=== PATIENT | female | born 1960 | race Caucasian/White ===

== ENCOUNTER → 2017-07-07 | Outpatient (CLI) | payer OTHER ==
--- NOTE | 2017-07-07 10:02 | ST Modified Barium Swallow ---
Recommendation - Recommendations Recommendations: No diet or compensatory strategy recommendations, functional swallow seen. Medical Diagnoses - Medical Diagnoses Medical Diagnosis Description & ICD-10 Code(s): dysphagia, R13.10, R13.19 Other Medical Diagnoses/Co-Morbidities: per patient report: HTN, hyperlipidemia , reflux, spinal stenosis, scoliosis, sciatica ST Modified Barium Swallow - General Date: 07/07/17 Referring Physician: Dr. Mickey Hernandez Risks/Precautions: None Date of Onset: 06/07/17 - approximate onset date Reason for Referral: difficulty swallowing - History History obtained from: Patient -: Medical - Patient reports that approximately 1 month ago, began having episodes in which she was having difficulty swallowing her own secretions. She stated it was as if she "forgot how to swallow". Episodes would last 15-20 seconds, then resolve. States this has happened approximately x3 in the last month. Does not report coughing or choking/strangling sensation during these episodes. No noted difficulty with food or drink. Medications: per patient report: omeprazole, furosemide, CoQ10, citalopram, Vitamin D3, aspirin, pravastatin Allergies: none reported - Functional Status Prior Functional Status: INDEPENDENT: feeding - independent Current Functional Limitations: feeding - independent - Subjective Patient/caregiver goal(s): r/o struct. abnormality Cognitive-Linguistic Function: WNL Speech Intelligibility: WNL Current Nutritional Means: PO Current PO diet: Regular Current symptoms: other Pain: Patient reports, 0/5 - Objective Assessment: Upright, Left Lateral - Food Trials Used Food trials used: Thin liquids, Pureed, Regular The patient: Was Able to Self Feed - Oral-Motor Skills Laryngeal Function: Throat Clear, Volitional Swallow, clear voicing - Assessment Oral prep: Normal Labial closure: Adequate Leakage: None Mastication: Adequate Lingual Movement: Normal Oral stage: Normal for this Procedure - Pharyngeal Stage Initiation of Pharyngeal Stage Reflex: Normal Decreased laryngeal elevation: No Reduced Velopharyngeal Closure: no Reduced pressure generation: No reduced tongue-based retraction: No Pre-swallow pooling in valleculae: None Pre-Swallow pooling in pyriforms: None Reduced Thyro-Hyoid approximation: No Reduced epiglottic excursion: No Reduced pharyngeal peristalsis/contraction: No Post-swallow residulas vallecular: None Post-Swallow residuals in pyriforms: None Post-Swallow Residuals: no residuals - Fall Risk Assessment Medications/Conditions that increase fall risks include: Antidepressants, sedatives, anti-arrhythmic, diuretic, benzodiazipenes, neuroleptics. BP regulation problems, cardiac problems, balance or gait deficits, neurological problems. Fall Risk Actions Taken: No action needed - Behavioral Observations During evaluation process patient: was cooperative, able to answer questions Mental Status: Alert & Oriented X3 - Treatment / Educational Needs: Treatment/Education Needs: Treatment consisted of patient education on the role of the Speech Pathologist. Patient's plan of care and golas were communicated as well as scheduling and attendance policies. Recommendations for initial home program were shared. Patient demonstrated understanding and verbalized agreement. - Impression/Summary Laryngeal Penetration: No Tracheal Aspiration: no Patient presents with: Normal swallow at eval Risk of Aspiration: Minimal Risk of nutritional compromise: None - Recommendations Solid diet recommendations: Regular Liquid Diet Modification: Thin Pt/Family education and followup with MD: Yes Dysphagia therapy with ADMINISTRATIVE DIETITIAN: no Information, Precautions and Recommendations: Patient (Written), Patient (Verbal ) - Time Total Time: 25 - Plan of Care Strategies to optimize patient understanding include:: ongoing assessment of educational needs, implementation of educational strategies, and re-education. - - -: Thank you for the opportunity to work with this patient and his/her family. Should you have any questions about this patient's plan or progress, I can be reached at [phone]. Charge G Code? - - -: No
--- NOTE | 2017-07-07 10:44 | RADIOLOGY REPORT (SQ) ---
EXAM DESCRIPTION: MRI HEAD WITHOUT COMPLETED DATE/TIME: 07/07/2017 9:02 am REASON FOR STUDY: HEADACHE (R51) R13.19 OTHER DYSPHAGIA COMPARISON: None. TECHNIQUE: Multiplanar imaging includes non-contrasted T1, T2, FLAIR, and diffusion with ADC map seq uences. Images stored on PACS. LIMITATIONS: None. FINDINGS: ANATOMY: No anomalies. Normal vascular flow voids. Pituitary fossa normal. CSF SPACES: Normal in size and contour. No hemorrhage. CEREBRUM: Sulci and gyri normal in size and contour. Normal white matter signal on FLAIR imaging. No evidence of hemorrhage, mass, or extraaxial fluid collection. POSTERIOR FOSSA: No signal alteration. No hemorrhage. No edema, masses or mass effect. Internal geraldine tory canals, cerebello-pontine angles, mastoids normal. DIFFUSION IMAGING: Negative for acute or sub-acute infarction. ORBITS: No masses. Globes normal. PARANASAL SINUSES: No fluid levels. Mucosa normal. OTHER: No other significant finding. IMPRESSION: NORMAL MRI OF THE BRAIN WITHOUT INTRAVENOUS GADOLINIUM CONTRAST. EVIDENCE OF ACUTE STROKE: NO. TECHNICAL DOCUMENTATION: JOB ID: [id number] [employer]- All Rights Reserved
--- NOTE | 2017-07-08 16:03 | RADIOLOGY REPORT (SQ) ---
EXAM DESCRIPTION: COOKIE SWALLOW COMPLETED DATE/TIME: 07/07/2017 8:25 am REASON FOR STUDY: DYSPHAGIA (R13.19) R13.19 OTHER DYSPHAGIA food in pharynx causing other injury, s equela T1 7.228S COMPARISON: None. TECHNIQUE: Videofluoroscopic swallowing examination was performed in conjunction with speech patholo gy. Videofluoroscopic imaging was obtained and reviewed and these are the findings: RADIATION DOSE: Total fluoroscopy time: 1 minutes 14 seconds 1 fluoroscopy image saved to PACS. LIMITATIONS: None FINDINGS: The patient was brought into the fluoro room and placed upright on a modified barium swall ow chair. The patient was then given multiple consistencies mixed with barium to swallow under live fluoroscopic video guidance. According to the Speech Pathologist there was no laryngeal penetration and no tracheal aspiration. Normal oral and pharyngeal transit time was observed. No significant po st swallow residual was seen. Please see speech pathology report for further details and recommendat ions. IMPRESSION: NO EVIDENCE OF LARYNGEAL PENETRATION OR TRACHEAL ASPIRATION.PLEASE SEE SPEECH PATHOLOGIS T REPORT FOR OTHER FINDINGS AND RECOMMENDATIONS. COMMENT: Quality ID [id number]: Final reports for procedures using fluoroscopy that document radiation exp osure indices, or exposure time and number of fluorographic images (if radiation exposure indices are not available) TECHNICAL DOCUMENTATION: JOB ID: [id number] [employer] All Rights Reserved
== END ==
LOC: RAD 07:39
PROVIDERS: ATTEND Specialist
DX: R13.19 Other dysphagia (principal); R51 Headache; K21.9 Gastro-esophageal reflux disease without esophagitis; I10 Essential (primary) hypertension; E78.5 Hyperlipidemia, unspecified; M48.00 Spinal stenosis, site unspecified; M41.9 Scoliosis, unspecified
CPT/HCPCS: 70551; 74230

== ENCOUNTER 2019-08-03 | Emergency (ER) | payer OTHER ==
[2019-08-03] MEDS ORDERED: HYDROMORPHONE HCL INJ/PF 2 MG/ML AMPULE IM ONE ×2 (02:33→03:30)
[2019-08-03] MEDS ORDERED: ONDANSETRON 4 MG TAB.RAPDIS PO ONE (02:33)
--- NOTE | 2019-08-03 02:37 | ER Document Report ---
ED Neck/Back Problem - General TRAVEL OUTSIDE OF THE [place] IN LAST 30 DAYS: No - Related Data Home Medications: has list--chantix, vit d, celexa,[id number],lasix, metformin, robaxin, omeprazole, ondansetron, oxycodone,pravastatin,miralax <BG ADAME - Last Filed: 08/03/19 07:54> <ALICIA NESS - Last Filed: 08/03/19 11:52> - General Chief Complaint: Post Surgical Pain Stated Complaint: BACK PAIN Time Seen by Provider: 08/03/19 02:25 Primary Care Provider: LUBA ADAN MD [Primary Care Provider] - Follow up as needed Notes: Patient is a 59-year-old female that comes emergency department for chief compl aint of severe lower back pain with radiation down the right buttock. She states she had surgical decompression of the lumbar spine done on 08/01/[address] [facility] [address] Scott. Patient states she has had bad experiences with opioids in the past that she was afraid to fill her medication but the pain is unbearable. She does have a prescription of 48 oxycodone 5 mg immediate release tablets with her at bedside. She did fill her Zofran and methocarbamol and took these without relief. She denies incontinence, fever, numbness, or reinjury. (BG ADAME) - Related Data Allergies/Adverse Reactions: codeine Adverse Reaction (Verified 08/03/19 06:15) Sulfa (Sulfonamide Antibiotics) Adverse Reaction (Verified 08/03/19 06:15) Past Medical History - General Information source: Patient - Social History Smoking Status: Former Smoker Frequency of alcohol use: None Drug Abuse: None Lives with: Family Family History: Reviewed & Not Pertinent Patient has suicidal ideation: No Patient has homicidal ideation: No Endocrine Medical History: Reports: Hx Diabetes Mellitus Type 2 GI Medical History: Reports: Hx Gastroesophageal Reflux Disease Past Surgical History: Reports: Hx Orthopedic Surgery - Lumbar spine 2019 - Immunizations Hx Diphtheria, Pertussis, Tetanus Vaccination: Yes <BG ADAME - Last Filed: 08/03/19 07:54> Review of Systems - Review of Systems Constitutional: No symptoms reported EENT: No symptoms reported Cardiovascular: No symptoms reported Respiratory: No symptoms reported Gastrointestinal: No symptoms reported Genitourinary: No symptoms reported Female Genitourinary: No symptoms reported Musculoskeletal: See HPI Skin: No symptoms reported Hematologic/Lymphatic: No symptoms reported Neurological/Psychological: No symptoms reported <BG ADAME - Last Filed: 08/03/19 07:54> Physical Exam <BG ADAME - Last Filed: 08/03/19 07:54> - Vital signs Vitals: Temp Pulse Resp BP Pulse Ox 98.6 F 84 20 150/60 H 94 08/03/19 00:13 08/03/19 00:13 08/03/19 00:13 08/03/19 00:13 08/03/19 00:13 - Notes Notes: GENERAL: Patient standing, holding onto the side of the bed, shifting her weight, appears very uncomfortable HEAD: Normocephalic, atraumatic. EYES: Pupils equal, round, and reactive to light. Extraocular movements intact. ENT: Oral mucosa moist, tongue midline. Oropharynx unremarkable. Airway patent. NECK: Full range of motion. Supple. Trachea midline. LUNGS: Clear to auscultation bilaterally, no wheezes, rales, or rhonchi. No respiratory distress. HEART: Regular rate and rhythm. No murmur ABDOMEN: Soft, non-tender. Non-distended. Bowel sounds present in all 4 quadrants. GENITOURINARY: Deferred EXTREMITIES: Moves all 4 extremities spontaneously. No edema, normal radial and dorsalis pedis pulses bilaterally. No cyanosis. BACK: Postsurgical dressing with sutures over the lower lumbar spine, no surrounding erythema or contusion, no drainage or dehiscence. No saddle anesthesia. Normal distal neurovascular exam, ambulates with pain but is able to do so. Unremarkable back exam otherwise. NEUROLOGICAL: Alert and oriented x3. Normal speech. Cranial nerves II through XII grossly intact. PSYCH: Anxious SKIN: Warm, dry, normal turgor. No rashes or lesions noted. (BG ADAME) Course - Laboratory Result Diagrams: 08/03/19 05:30 08/03/19 05:30 <BG ADAME - Last Filed: 08/03/19 07:54> - Laboratory Result Diagrams: 08/03/19 05:30 08/03/19 05:30 <ALICIA NESS - Last Filed: 08/03/19 11:52> - Re-evaluation Re-evalutation: Patient obviously uncomfortable. She does have her prescription with her for her oxycodone 5 mg but did not fill it clearly. She appears to have taken Robax in and Zofran. Patient has postsurgical back exam but no obvious neurological deficits, no fever, no tachycardia. Patient will be given 1 mg of Dilaudid IM and reevaluated. Patient without significant change after the initial Dilaudid, given additional dose. Also given p.o. Valium. I discussed patient with Dr. Fajardo at length. Patient with minimal improvement on reevaluation, placing IV, obtaining laboratory work-up and imaging, giving IV Valium because there appears to be muscle spasm going on at this time. CBC shows leukocytosis at 17,000 without bandemia, some elevation of neutroph ils, nonspecific. ESR mildly elevated, CRP is 79. Imaging pending. Patient remedicated with IV Dilaudid, I had to wait a few hours because she became mildly hypoxic despite still reporting discomfort with previous treatments, hypoxia resolves easily with nasal cannula. Patient remains responsive and mildly uncomfortable in appearance. No new changes otherwise. 08/03/19 07:[address] results of CT, called radiology in an attempt to recent images to see if we can get a report. (BG ADAME) 08/03/19 08:26 Call placed to speak with Dr. Scott at [facility]. 08/03/19 09:[address] Scott. He states that he would not admit for post-op pain, but if we want to transfer to their ED we can just to help with pain then they would discharge thereafter. Reviewed and we will continue management here for now as patient does not want to transfer right now. He recommends celebrex/decadron now and send home with steroid taper, celebrex, and dilaudid PO. She has r obaxin and oxycodone prescribed, but she would have to withhold her oxycodone if she is taking dilaudid which I reviewed with her due to potential side effects/overdose which she verbalized understanding of. Pt has no new concerns or complaints. She has intermittent spasm/radiculitis type pain to her buttocks b/l. The incision appears well w/o any erythema or purulence. Pt states that overall she feels better than she did. We will monitor and treat for a little while longer and consider discharge thereafter. Pt in agreement with plan. 08/03/19 11:47 Re-eval on patient. She is feeling much better. We will continue with management per Orthopedics as noted above. Patient is an afebrile, well-hydrated, 59-year-old female who presents with postop pain. Vitals are currently acceptable. PE is otherwise unremarkable. Patient is nontoxic-appearing and is able to tolerate p.o. without difficulty. Patient to monitor closely and seek medical attention with acute changes. Call the orthopedic provider tomorrow. Recheck with your PCM in 3 to 5 days. Return to the ED with any other worsening/concerning symptoms. Patient is in agreement. I did call the transfer center again to notify them of the update for Dr. Scott. (ALICIA NESS) - Vital Signs Vital signs: Temp Pulse Resp BP Pulse Ox 98.6 F 84 20 147/94 H 94 08/03/19 00:13 08/03/19 00:13 08/03/19 00:13 08/03/19 09:02 08/03/19 09:02 - Laboratory Laboratory results interpreted by me: 08/03/19 08/03/19 05:30 05:30 WBC 17.9 H Lymph % (Auto) 11.0 L Absolute Neuts (auto) 14.5 H Seg Neutrophils % 81.1 H ESR 46 H Chloride 97 L Glucose 146 H C-Reactive Protein 79.2 H Discharge <BG ADAME - Last Filed: 08/03/19 07:54> <ALICIA NESS - Last Filed: 08/03/19 11:52> - Discharge Clinical Impression: Post-op pain Condition: Stable Disposition: HOME, SELF-CARE Additional Instructions: Rest, Ice Medications as reviewed Light stretches daily Strength exercises as able Do not take your oxycodone if/when you are taking Dilaudid* F/u with your PCP in 3-5 days for a recheck Check in with Dr. Scott tomorrow morning (phone call). Return to the ED with any worsening symptoms and/or development of fever, headache, chest pain, palpitations, syncope, shortness of breath, trouble breathing, abdominal pain, n/v/d, blood in stool/urine, loss of control of bowel/bladder, urinary retention, muscle weakness/paralysis, saddle anesthesia, numbness/tingling, or other worsening symptoms that are concerning to you. Prescriptions: Celecoxib [Celebrex 100 mg Capsule] 100 mg PO BID #30 capsule Prednisone [Deltasone 10 mg Tablet] 10 mg PO DAILY #18 tablet Hydromorphone HCl [Dilaudid 2 mg Tablet] 2 mg PO QID #16 tablet Forms: Elevated Blood Pressure Referrals: LUBA ADAN MD [Primary Care Provider] - Follow up as needed
[2019-08-03] MEDS ORDERED: DIAZEPAM 5 MG TABLET PO ONE (03:30)
[2019-08-03] MEDS ORDERED: DIAZEPAM INJ 10 MG/2 ML DISP.SYRIN IV ONE ×2 (04:08→08:22)
[2019-08-03 06:01] LABS: ABSOLUTE BASOPHILS # (AUTO) 0.1 10^3/uL (0.0-0.2); ABSOLUTE MONOCYTES (AUTO) 1.3 10^3/uL (0.1-1.4); ABSOLUTE NEUT (AUTO) 14.5 10^3/uL (1.7-8.2); BASOPHILS % (AUTO) 0.4 % (0-2); HEMATOCRIT 36.2 % (36.0-47.0); HEMOGLOBIN 12.6 g/dL (12.0-15.5); MEAN CORPUSCULAR HEMOGLOBIN 30.1 pg (27.0-33.4); MEAN CORPUSCULAR HGB CONC 34.8 g/dL (32.0-36.0); MEAN CORPUSCULAR VOLUME 87 fl (80-97); MONOCYTES % (AUTO) 7.5 % (3-13); PLATELET COUNT 337 10^3/uL (150-450); RED BLOOD COUNT 4.19 10^6/uL (3.72-5.28); RED CELL DISTRIBUTION WIDTH 13.9 % (11.5-14.0); SEGMENTED NEUTROPHILS % (AUTO) 81.1 % (42-78); TOTAL CELLS COUNTED % (AUTO) 100 %; WHITE BLOOD COUNT 17.9 10^3/uL (4.0-10.5)
[2019-08-03 06:10] LABS: ALBUMIN 4.4 g/dL (3.5-5.0); ALKALINE PHOSPHATASE 124 U/L (38-126); ANION GAP 13 (5-19); ASPARTATE AMINO TRANSFERASE 26 U/L (14-36); BILIRUBIN,DIRECT 0.1 mg/dL (0.0-0.4); BILIRUBIN,TOTAL 1.2 mg/dL (0.2-1.3); BLOOD UREA NITROGEN 13 mg/dL (7-20); C-REACTIVE PROTEIN 79.2 mg/L (<10.0); CALCIUM 9.4 mg/dL (8.4-10.2); CARBON DIOXIDE 29 mmol/L (22-30); CHLORIDE 97 mmol/L (98-107); GLUCOSE 146 mg/dL (75-110); POTASSIUM 3.6 mmol/L (3.6-5.0); TOTAL PROTEIN 7.4 g/dL (6.3-8.2)
[2019-08-03 06:44] LABS: ERYTHROCYTE SEDIMENTATION RATE 46 mm/hr (0-30)
[2019-08-03] MEDS ORDERED: HYDROMORPHONE HCL INJ/PF 2 MG/ML AMPULE IV ONE ×2 (06:58→11:53)
--- NOTE | 2019-08-03 07:53 | RADIOLOGY REPORT (SQ) ---
EXAM: CT lumbar spine without IV contrast CLINICAL DATA: 51-year-old female with severe postop pain status post lumbar decompression. TECHNICAL DATA: Multiple high-resolution thin axial CT images were performed through the lumbar spine followed by sagittal and coronal reconstructed images. The CT study is performed according to ALARA (as low as reasonably achievable) or ALARA/IMAGE GENTLY, with automatic adjustment of mA and/or kV according to patient size. Performed on: 08/03/2019 at 6:29 AM COMPARISONS: None FINDINGS: The lumbar vertebrae are normal in height. There is normal alignment of the vertebrae. There is marked disc space narrowing at L4-L5. There are vacuum discs present at L3-L4, L4-L5 and L5-S1. Bone mineralization is normal. There is a left laminectomy defect at the L4 level and L5 level. There is air in the spinal canal likely postoperative in nature. There is a small locule of air tracking along the medial aspect of the left psoas muscle. There is a small amount of subcutaneous emphysema and fluid within the dorsal subcutaneous soft tissues at the level of L4. There is normal alignment of the facet joints on the parasagittal images. There are mild to moderate degenerative changes of the facet joints at L4-L5 and L5-S1. There is no evidence of acute fracture or subluxation. There is no significant canal stenosis. There is bilateral neural foraminal stenosis at L4-L5 and L5-S1 secondary to a disc osteophyte complex and facet joint hypertrophy. There is right neural foraminal stenosis at L3-L4 secondary to a disc osteophyte complex. The paravertebral and paraspinal soft tissues are unremarkable. There is a left common iliac vein stent. IMPRESSION: 1. Postsurgical changes of the lumbar spine consistent with left laminectomies at L4 and L5. 2. Degenerative changes of the lumbar spine as described above. 3. Bilateral neural foraminal stenosis at L4-L5 and L5-S1 secondary to a disc osteophyte complex and facet joint hypertrophy and right neural foraminal stenosis at L3-L4 secondary to a disc osteophyte complex.
[2019-08-03] MEDS ORDERED: CELECOXIB 200 MG CAPSULE PO ONE (09:47)
[2019-08-03] MEDS ORDERED: DEXAMETHASONE SOD PHOS INJ 10 MG/1 ML VIAL IV ONE (09:48)
[2019-08-03 12:30] VITALS: BP 139/55
== END 2019-08-03 12:30 | disposition home or self-care (01) ==
LOC: ER
DX: G89.18 Other acute postprocedural pain (principal); M54.5 Low back pain; D72.828 Other elevated white blood cell count; R09.02 Hypoxemia; E11.9 Type 2 diabetes mellitus without complications; K21.9 Gastro-esophageal reflux disease without esophagitis; Z79.899 Other long term (current) drug therapy; Z79.84 Long term (current) use of oral hypoglycemic drugs; Z87.891 Personal history of nicotine dependence
CPT/HCPCS: 36415; 85025; 85652; 86140; 80053; 72132; J3360; S0119; J1170; J1100; 96372; 96374; 96375; 96376; 99284